=== PATIENT | male | born 1985 | race Two or more races ===

== ENCOUNTER 2022-11-30 08:17 | Emergency (ER) | payer SELFPAY ==
[~2022-11-30] VITALS: Ht 177.8 cm; Wt 109.0 kg
[2022-11-30 08:27] VITALS: BP 127/75
[2022-11-30 10:13] LABS: Urine Amorphous Crystal FEW /hpf (None Seen); Urine Bacteria NONE SEEN /hpf (None Seen); Urine Blood Negative /uL (Negative); Urine Mucus MODERATE (None Seen); Urine Specific Gravity 1.031 (1.001-1.035); Urine WBC 5 /hpf (0 - 3)
[2022-11-30 10:19] LABS: Amphetamine Screen, Urine NEGATIVE (NEGATIVE); Barbiturate Scree,Urine NEGATIVE (NEGATIVE); Benzodiazephine Screen, Urine NEGATIVE (NEGATIVE); Cannabinoid Screen, Urine POSITIVE (NEGATIVE); Cocaine Screen, Urine NEGATIVE (NEGATIVE); Opiate Scree,Urine NEGATIVE (NEGATIVE); Phencyclidine Screen, Urine NEGATIVE (NEGATIVE)
[2022-11-30] MEDS ORDERED: LORazepam 0.5 MG TAB PO ONE (11:30)
== END 2022-11-30 12:55 | disposition home or self-care (01) ==
LOC: EDBD 08:17 → ER 08:17
DX: F25.9 Schizoaffective disorder, unspecified (principal)
CPT/HCPCS: 36415; 80307; 80320; 81001